=== PATIENT | female | born 1945 | race Asian ===

== ENCOUNTER 2018-05-18 23:41 | Emergency (ER) | payer MEDICARE ==
[~2018-05-18] VITALS: Ht 160 cm; Wt 65.9 kg
[2018-05-19] MEDS ORDERED: CHOL50004 PO (00:13)
[2018-05-19] MEDS ORDERED: LISI-660 PO (00:13)
[2018-05-19] MEDS ORDERED: DOCU250C91 PO (00:13)
[2018-05-19] MEDS ORDERED: PRAM0.258 PO (00:13)
[2018-05-19] MEDS ORDERED: SOTA80 PO (00:13)
[2018-05-19] MEDS ORDERED: ALEN70TA10 PO (00:13)
[2018-05-19] MEDS ORDERED: DIGO-44 PO (00:13)
[2018-05-19] MEDS ORDERED: ANAS1TAB50 PO (00:13)
[2018-05-19 00:53] VITALS: BP 177/92
[2018-05-19] MEDS ORDERED: LORazepam 1 MG TABLET PO ONE (01:45)
[2018-05-19 02:16] LABS: APPEARANCE,URINE CLOUDY (CLEAR); BILIRUBIN,URINE NEGATIVE (NEGATIVE); GLUCOSE, URINE (UA) NEGATIVE (NEGATIVE); KETONES,URINE NEGATIVE (NEGATIVE); LEUKOCYTE ESTERASE ,URINE TRACE (NEGATIVE); NITRATE,URINE NEGATIVE (NEGATIVE); OCCULT BLOOD,URINE NEGATIVE (NEGATIVE); PH,URINE 6.5 (5.0-8.0); PROTEIN,URINE NEGATIVE (NEGATIVE)
[2018-05-19 02:26] LABS: RBC,URINE 0-2 /HPF (0-2)
[2018-05-19 02:27] LABS: AMORPHOUS SEDIMENT,UR Few /LPF (None Seen); BACTERIA,URINE Moderate /HPF (None Seen); MUCUS,URINE Many LPF (None Seen); SQUAMOUS EPITHELIAL CELL,UR Many /LPF (None Seen)
== END 2018-05-19 05:02 | disposition home or self-care (01) ==
LOC: EDUNIT# 23:41 → EMS 23:44
DX: F03.90 Unspecified dementia, unspecified severity, without behavioral disturbance, psychotic disturbance, mood disturbance, and anxiety (principal); E78.00 Pure hypercholesterolemia, unspecified; I48.91 Unspecified atrial fibrillation; I10 Essential (primary) hypertension; Z79.899 Other long term (current) drug therapy
CPT/HCPCS: 87086